=== PATIENT | female | born 1995 | race Caucasian/White ===

== ENCOUNTER 2019-12-01 13:03 | Emergency (ER) | payer OTHER ==
[2019-12-01 13:11] VITALS: BP 124/73
[2019-12-01 13:39] LABS: RAPID STREP SCREEN Negative (Negative)
--- NOTE | 2019-12-01 14:14 | ED Physician Documentation ---
PD HPI HEENT - Stated complaint Stated Complaint: SORE THROAT - Chief complaint Chief Complaint: Heent - History obtained from History obtained from: Patient - Additional information Additional information: 24yF p/w sore throat X 5d, mild fatigue, fever for 3 days, no runny nose no cough. Review of Systems Constitutional: reports: Fever, Myalgias. denies: Chills Nose: denies: Rhinorrhea / runny nose, Congestion Throat: reports: Sore throat Respiratory: denies: Cough PD PAST MEDICAL HISTORY - Past Medical History Past Medical History: No - Present Medications Home Medications: Ambulatory Orders Medication Instructions Recorded Confirmed predniSONE [Deltasone] 60 mg PO DAILY 5 Days #15 tablet 12/01/19 - Allergies Allergies/Adverse Reactions: Allergies Allergy/AdvReac Type Severity Reaction Status Date / Time No Known Drug Allergies Allergy Verified 12/01/19 13:10 - Social History Does the pt smoke?: Yes Smoking Status: Current every day smoker PD ED PE NORMAL - Vitals Vital signs reviewed: Yes (tachycardic) - General General: Alert and oriented X 3, No acute distress - HEENT HEENT: Other (exudative tonsillitis with ant cerv adenopathy) - Neck Neck: Supple, no meningeal sign - Cardiac Cardiac: RRR, No murmur - Respiratory Respiratory: No respiratory distress, Clear bilaterally - Abdomen Abdomen: Normal bowel sounds - Derm Derm: No rash - Neuro Neuro: Alert and oriented X 3, Normal speech Results - Vitals Vitals: Vital Signs - 24 hr 12/01/19 13:06 Temperature 36.7 C Heart Rate 120 H Respiratory 16 Rate Blood Pressure 124/73 O2 Saturation 100 Oxygen O2 Source Room air - Labs Labs: Laboratory Tests 12/01/19 12/01/19 13:13 14:40 Infectious [place] Assay NEGATIVE Group A Strep Rapid Negative PD MEDICAL DECISION MAKING - ED course ED course: 24yF with exudative tonsillitis. she requests a mono test too which was neg Departure - Departure Disposition: 01 Home, Self Care Clinical Impression: Viral pharyngitis Condition: Good Record reviewed to determine appropriate education?: Yes Instructions: ED Pharyngitis Viral Report Pending Prescriptions: predniSONE [Deltasone] 60 mg PO DAILY 5 Days #15 tablet Comments: Both rapid strep and mono tests were normal/negative. Likely to be a viral process. You can take ibuprofen as needed for pain, the prednisone may help with the swelling. If your throat culture is positive we will call you in a couple of days and call in antibiotics at that juncture. Return if worse. Discharge Date/Time: 12/01/19 15:11
== END 2019-12-01 15:11 | disposition home or self-care (01) ==
LOC: ED 13:03
DX: J02.8 Acute pharyngitis due to other specified organisms (principal); B97.89 Other viral agents as the cause of diseases classified elsewhere; F17.200 Nicotine dependence, unspecified, uncomplicated
CPT/HCPCS: 86308; 87070; 87430; 99283

== ENCOUNTER 2019-12-17 14:04 | Emergency (ER) | payer OTHER ==
[2019-12-17 14:26] LABS: RAPID STREP SCREEN Negative (Negative)
[2019-12-17] MEDS ORDERED: DEXAMETHASONE 10 MG/ML VIAL PO STA (14:30)
[2019-12-17] MEDS ORDERED: CHERRY SYRUP 10 ML UDC PO ONE (14:30)
--- NOTE | 2019-12-17 14:33 | ED Physician Documentation ---
PD HPI HEENT - Stated complaint Stated Complaint: SORE THROAT - Chief complaint Chief Complaint: Heent - History obtained from History obtained from: Patient - History of Present Illness Timing - onset: How many days ago (2) Timing - duration: Days (2) Timing - details: Gradual onset, Still present in ED Location: Throat Improves: Medication Worsens: [place] Review of Systems Constitutional: denies: Fever Eyes: denies: Decreased vision Ears: denies: Ear pain Nose: denies: Rhinorrhea / runny nose, Congestion Throat: reports: Sore throat Cardiac: denies: Chest pain / pressure, Palpitations Respiratory: reports: Cough. denies: Dyspnea GI: denies: Abdominal Pain, Nausea, Vomiting : denies: Dysuria, Frequency Skin: denies: Rash Musculoskeletal: denies: Neck pain, Back pain PD PAST MEDICAL HISTORY - Present Medications Home Medications: Ambulatory Orders Medication Instructions Recorded Confirmed predniSONE [Deltasone] 60 mg PO DAILY 5 Days #15 tablet 12/01/19 Amox/Clav 875/125 [Augmentin] 1 each PO Q12H #20 tablet 12/17/19 - Allergies Allergies/Adverse Reactions: Allergies Allergy/AdvReac Type Severity Reaction Status Date / Time No Known Drug Allergies Allergy Verified 12/17/19 14:10 - Social History Does the pt smoke?: Yes Smoking Status: Current every day smoker PD ED PE NORMAL - Vitals Vital signs reviewed: Yes - General General: Alert and oriented X 3, No acute distress, Well developed/nourished - HEENT HEENT: Atraumatic, PERRL, EOMI, Ears normal, Other (tonsils are 2+ cryptic and exudative) - Neck Neck: Supple, no meningeal sign, No bony TTP, Other (tender submandibular ad enpathy ) - Cardiac Cardiac: No murmur, Other (tachy to 110) - Respiratory Respiratory: No respiratory distress, Clear bilaterally - Abdomen Abdomen: Soft, Non tender - Back Back: No CVA TTP, No spinal TTP - Derm Derm: Normal color, Warm and dry, No rash - Extremities Extremities: No deformity, No edema - Neuro Neuro: Alert and oriented X 3, 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, No motor deficit, No sensory deficit, Normal speech Eye Opening: Spontaneous Motor: Obeys Commands Verbal: Oriented GCS Score: 15 - Psych Psych: Normal mood, Normal affect Results - Vitals Vitals: Vital Signs - 24 hr 12/17/19 14:07 Temperature 36.9 C Heart Rate 120 H Respiratory 17 Rate Blood Pressure 121/72 O2 Saturation 99 Oxygen O2 Source Room air - Labs Labs: Laboratory Tests 12/17/19 14:15 Group A Strep Rapid Negative PD MEDICAL DECISION MAKING - ED course Complexity details: reviewed old records, reviewed results, considered differential, d/w patient ED course: 24y/o female with another sore throat has cryptic exudative tonsils on exam and she is treated with decadron and we will place her on a course of augmentin. Departure - Departure Disposition: Home, Self Care Clinical Impression: Tonsillitis Condition: Stable Instructions: ED Tonsillitis Follow-Up: ALISHA Montes [Provider Group] Prescriptions: Amox/Clav 875/125 [Augmentin] 1 each PO Q12H #20 tablet Forms: Activity restrictions
[2019-12-17 15:12] VITALS: BP 105/62
== END 2019-12-17 15:13 | disposition home or self-care (01) ==
LOC: ED 14:04
DX: J03.90 Acute tonsillitis, unspecified (principal); Z20.828 Contact with and (suspected) exposure to other viral communicable diseases; F17.200 Nicotine dependence, unspecified, uncomplicated
CPT/HCPCS: 87070; 87077; 87430; 87635; 99283; A9270

== ENCOUNTER 2020-04-04 11:52 | Emergency (ER) | payer OTHER ==
[2020-04-04 12:01] VITALS: BP 139/92
--- NOTE | 2020-04-04 12:34 | ED Physician Documentation ---
PD HPI DYSPNEA - Stated complaint Stated Complaint: WEAKNESS - Chief complaint Chief Complaint: Resp - History obtained from History obtained from: Patient - Additional information Additional information: Recent return from [employer] work-related trip. For about 6 days she has had a nonproductive cough, body aches, headaches, chills. No measured fevers. She does have mild shortness of breath. No pertinent past medical history. Review of Systems Constitutional: denies: Fever Nose: denies: Rhinorrhea / runny nose Cardiac: denies: Chest pain / pressure, Palpitations Respiratory: denies: Hemoptysis, Wheezing PD PAST MEDICAL HISTORY - Past Medical History Past Medical History: Yes Cardiovascular: None Respiratory: None Neuro: None Endocrine/Autoimmune: None GI: None FUR REPAIRER: None : None HEENT: None Psych: None Musculoskeletal: None Derm: None - Past Surgical History Past Surgical History: No - Present Medications Home Medications: Ambulatory Orders Medication Instructions Recorded Confirmed No Known Home Medications 04/04/20 04/04/20 - Allergies Allergies/Adverse Reactions: Allergies Allergy/AdvReac Type Severity Reaction Status Date / Time No Known Drug Allergies Allergy Verified 04/04/20 12:01 - Social History Does the pt smoke?: Yes Smoking Status: Current every day smoker Does the pt drink ETOH?: No Does the pt have substance abuse?: No - Immunizations Immunizations are current?: Yes - POLST Patient has POLST: No PD ED PE NORMAL - Vitals Vital signs reviewed: Yes - General General: Alert and oriented X 3, No acute distress - HEENT HEENT: Pharynx benign - Cardiac Cardiac: RRR, No murmur - Respiratory Respiratory: No respiratory distress, Clear bilaterally - Abdomen Abdomen: Non tender - Back Back: No CVA TTP, No spinal TTP - Derm Derm: Normal color, Warm and dry, No rash - Neuro Neuro: Alert and oriented X 3, Normal speech Results - Vitals Vitals: Vital Signs - 24 hr 04/04/20 11:57 Temperature 36.7 C Heart Rate 124 H Respiratory 16 Rate Blood Pressure 139/92 H O2 Saturation 100 Oxygen O2 Source Room air PD MEDICAL DECISION MAKING - ED course ED course: This young lady has a nonspecific viral syndrome, no evidence of bacterial infection. Could certainly be coronavirus and will be tested for same. Departure - Departure Disposition: 01 Home, Self Care Clinical Impression: Viral syndrome Condition: Good Record reviewed to determine appropriate education?: Yes Instructions: ED Viral Syndrome Comments: Drink plenty of fluids and take Tylenol and/or ibuprofen per package instructions as needed for aches and fevers. You have a Covid test pending. You need to self quarantine until the result is done and negative. Do not leave your house. Do not get near anybody. The results should be done in 48 to 72 hours. We will call with a positive result, the fastest way to get a negative result for confirmation though is to go to the hospital website at [email or web address], click on the my [email or web address] tab and sign up for the patient portal. If any friends or family get sick and would like to have a Covid test done, but do not have signs or symptoms that would necessitate being hospitalized, we encourage testing through our coronavirus swabbing station, call [phone] to schedule an appointment. Forms: Activity restrictions
== END 2020-04-04 13:19 | disposition home or self-care (01) ==
LOC: ED 11:52
DX: B34.9 Viral infection, unspecified (principal); Z20.822 Contact with and (suspected) exposure to COVID-19; F17.200 Nicotine dependence, unspecified, uncomplicated
CPT/HCPCS: 99283